=== PATIENT | female | born 1970 | race Caucasian/White ===

== ENCOUNTER → 2016-11-06 | Outpatient (CLI) | payer BC ==
[~2016-11-06] MED LIST: CEFTIN250 MG PO; LEVAQUIN 5500 MG/TAB PO; NO HOME MEDICATIONS
== END ==
LOC: MC.RAD 10-24 13:20
DX: Z12.31 Encounter for screening mammogram for malignant neoplasm of breast (principal)

== ENCOUNTER → 2017-11-18 | Outpatient (CLI) | payer BC | LOC: MC.RAD 10:40 | DX: Z12.31 Encounter for screening mammogram for malignant neoplasm of breast (principal) ==

== ENCOUNTER → 2018-12-27 | Outpatient (CLI) | payer BC | LOC: MC.RAD 13:54 | DX: Z12.31 Encounter for screening mammogram for malignant neoplasm of breast (principal) ==

== ENCOUNTER → 2019-12-29 | Outpatient (CLI) | payer BC | LOC: MC.RAD 08:00 | DX: Z12.31 Encounter for screening mammogram for malignant neoplasm of breast (principal) ==

== ENCOUNTER 2020-11-21 09:01 | Day surgery (SDC) | payer BC ==
[~2020-11-21] VITALS: Ht 160 cm; Wt 66.6 kg
[2020-11-21] MEDS ORDERED: XANAX .25M0.25 MG/TA PO (09:32)
[2020-11-21] MEDS ORDERED: ASPIRIN 81M81 MG/TA2 PO (09:32)
[2020-11-21] MEDS ORDERED: VITAMIN B122500 MCG SL (09:33)
[2020-11-21] MEDS ORDERED: DUO-KAPS1 CAP PO (09:33)
[2020-11-21] MEDS ORDERED: LEXAPRO 10MG10 MG PO (09:34)
[2020-11-21] MEDS ORDERED: VITAMIN D31000 I1 PO (09:36)
[2020-11-21] MEDS ORDERED: PRINZIDE 12.5 M1 TA1 PO (09:36)
[2020-11-21 11:16] VITALS: BP 106/60; PULSE 59
--- NOTE | 2020-11-21 11:16 | NUR ---
Patient returns to room 7 per cart from surgery and is awake and alert. Temp 97.7 and room air sats 95%. Foot of cart is elevated. Post op shoe in place. Friend at bedside. Sipping on Sprite. Dressing clean and dry on the right foot. Siderails up x2 and call light in reach.
[2020-11-21 11:31] VITALS: BP 111/82; PULSE 56
--- NOTE | 2020-11-21 11:31 | NUR ---
Sipping on juice. Room air sats 96%. Denies right foot pain.
[2020-11-21] MEDS ORDERED: PERCOCET 325 MG1 TA2 PO (11:45)
[2020-11-21 11:46] VITALS: BP 112/71; PULSE 51
--- NOTE | 2020-11-21 11:46 | NUR ---
Continues to rest without complaints of pain or nausea. Friend remains in room. Foot of the cart is elevated. Post op shoe in place.
--- NOTE | 2020-11-21 11:53 | NUR ---
Assisted up to the bathroom. Uses walker to transfer. States that the right foot remains numb. Post op shoe on. Dressing clean and dry. Tolerates activity well. IV was converted to INT.
--- NOTE | 2020-11-21 12:05 | NUR ---
Patient has dressed self.
--- NOTE | 2020-11-21 12:10 | NUR ---
Dismissal instructions given and patient voices understanding of follow up and provided script for pain medication by Dr. Lewis. All questions answered. Patient's friend becomes irritated when informed that pain medications will need to be taken to the pharmacy to be filled.
--- NOTE | 2020-11-21 12:13 | NUR ---
Patient assisted into wheelchair and taken to the front door and assisted into vehicle by this RN and dismissed to home driven by friend.
== END 2020-11-21 12:13 | disposition home or self-care (01) ==
LOC: SDCO 09:01
DX: M21.611 Bunion of right foot (principal); E78.5 Hyperlipidemia, unspecified; I10 Essential (primary) hypertension; F41.9 Anxiety disorder, unspecified; Z79.82 Long term (current) use of aspirin; Z20.822 Contact with and (suspected) exposure to COVID-19; Z79.899 Other long term (current) drug therapy; Z90.710 Acquired absence of both cervix and uterus; Z83.3 Family history of diabetes mellitus
CPT/HCPCS: J0690; J1100; J1885; J2250; J2405; J2704; J3010; J7120

== ENCOUNTER → 2021-01-16 | Outpatient (CLI) | payer BC ==
[~2021-01-16] MED LIST changes: +ASPIRIN 81M81 MG/TA2 PO; +DUO-KAPS1 CAP PO; +LEXAPRO 10MG10 MG PO; +PERCOCET 325 MG1 TA2 PO; +PRINZIDE 12.5 M1 TA1 PO; +VITAMIN B122500 MCG SL; +VITAMIN D31000 I1 PO; +XANAX .25M0.25 MG/TA PO
== END ==
LOC: MC.RAD 11:30
DX: Z12.31 Encounter for screening mammogram for malignant neoplasm of breast (principal)

== ENCOUNTER → 2022-02-25 | Outpatient (CLI) | payer BC | LOC: MC.RAD 15:03 | DX: Z12.31 Encounter for screening mammogram for malignant neoplasm of breast (principal) ==